=== PATIENT | female | born 1955 ===

== ENCOUNTER 2020-08-24 07:15 | Inpatient (IN) | payer OTHER ==
[~2020-08-24] VITALS: Ht 149.9 cm; Wt 101.2 kg
[2020-08-24] MEDS ORDERED: NAPROXEN500 MG PO (09:35)
[2020-08-24] MEDS ORDERED: OMEPRAZ PO (09:36)
[2020-08-24] MEDS ORDERED: TYLEN PO (09:36)
[2020-08-28] MEDS ORDERED: CYCLOBENZAPRINE10 MG (08:20)
[2020-08-28] MEDS ORDERED: NORVASC2.5 MG (08:20)
[2020-08-28] MEDS ORDERED: TYLENOL325 MG (08:21)
[2020-08-28] MEDS ORDERED: OMEPRAZOLE20 MG (08:21)
[2020-08-30] MEDS ORDERED: BACTRIM DS TAB1 EACH PO (06:12)
[2020-08-30] MEDS ORDERED: XARELTO10 MG PO (06:12)
[2020-08-30] MEDS ORDERED: OXYC1TAB9 PO (06:12)
[2020-08-30] MEDS ORDERED: INTEGRA PLUS C1 EACH PO (06:12)
== END 2020-08-30 13:40 | disposition home or self-care (01) | DRG 470 ==
LOC: SURG 08-28 06:41 → O/R 08-28 06:41 → SURH 08-28 07:15 → EDBD 08-28 07:15 → SURG 08-28 14:47 → SURH 08-28 16:00 → SURG 08-30 13:40
PROVIDERS: ADMIT Orthopaedic Surgery Sports Medicine; ATTEND Orthopaedic Surgery Sports Medicine
PROC: 0SRC0J9 Replacement of Right Knee Joint with Synthetic Substitute, Cemented, Open Approach (ICD-10-PCS; principal; 2020-08-28 16:00)
DX: M17.11 Unilateral primary osteoarthritis, right knee (principal); I10 Essential (primary) hypertension